=== PATIENT | female | born 1955 | race Caucasian/White ===

== ENCOUNTER 2019-11-03 17:49 | Inpatient (IN) | payer OTHER ==
[~2019-11-03] VITALS: Ht 167.6 cm; Wt 75.4 kg
[~2019-11-03 17:49] MED LIST: CRUTCH USE; OXYACE5T PO
[2019-11-03] MEDS ORDERED: ALPR.5 PO (18:49)
[2019-11-03] MEDS ORDERED: Abilify5 MG PO (18:49)
[2019-11-03] MEDS ORDERED: Prozac40 MG PO (18:49)
[2019-11-03] MEDS ORDERED: TRAM50 PO (19:31)
[2019-11-03 19:48] LABS: BASOPHILS PERCENT AUTO 1 % (0-2); EOSINOPHILS ABSOLUTE AUTO 0.02 K/mm3 (0.00-0.68); EOSINOPHILS PERCENT AUTO 0 % (0-6); Hematocrit 45.8 % (33.0-51.0); Hemoglobin 15.3 g/dL (11.5-16.0); IMMATURE GRAN ABSOLUTE AUTO 0.27 K/mm3 (0.00-0.10); IMMATURE GRAN PERCENT AUTO 1 % (0-1); LYMPHOCYTES ABSOLUTE AUTO 1.13 K/mm3 (0.84-5.20); LYMPHOCYTES PERCENT AUTO 5 % (21-46); MONOCYTES ABSOLUTE AUTO 0.83 K/mm3 (0.16-1.47); MONOCYTES PERCENT AUTO 4 % (4-13); Mean Corpuscular HGB 30.2 pg (26.0-34.0); Mean Corpuscular HGB Conc 33.4 g/dL (31.5-36.5); Mean Corpuscular Volume 91 fL (80-100); Mean Platelet Volume 10.5 fL (9.1-12.4); NEUTROPHILS ABSOLUTE AUTO 18.45 K/mm3 (1.96-9.15); NEUTROPHILS PERCENT AUTO 89 % (41-73); Platelet Count 262 K/mm3 (150-400); RDW Coefficient Variation 12.6 % (11.7-14.2); RDW Standard Deviation 41.5 fL (35.1-46.3); Red Blood Cell Count 5.06 M/mm3 (3.80-5.20)
[2019-11-03 19:58] LABS: Anion Gap 9 mmol/L (6-16); Blood Urea Nitrogen 17 mg/dL (8-24); Bun/Creatinine Ratio 18.8 (12.0-20.0); CO2, Blood 24 mmol/L (21-32); Calcium, Blood 9.1 mg/dL (8.5-10.1); Chloride, Blood 100 mmol/L (98-108); Creatinine, Blood 0.91 mg/dL (0.40-1.00); Glomerular Filtration Rate >60 (60-); Glucose, Blood 99 mg/dL (70-99); Potassium, Blood 3.4 mmol/L (3.5-5.5); Sodium, Blood 133 mmol/L (136-145)
--- NOTE | 2019-11-04 05:38 | NUR ---
SHIFT SUMMARY PT NEW ADMIT THIS SHIFT. AAOX4. NPO THIS AM. DISCOMFORT TO LEFT HIP CONTROLLED WITH 1MG IV DILAUDID Q2-3P. NO NAUSEA/EMESIS. ABRASION TO RIGHT HAND WRAPPED WITH GAUZE/COBAN. PPP, DENIES N/T MOVES TOES WELL BLE. NEW COCO PLACED THIS SHIFT. PT RESTED WELL THROUGH MOST OF NIGHT. ORIENTED TO CALL LIGHT + DEMONSTRATED USE. PT RESTING AT THIS TIME, NADN, WITH CALL LIGHT IN REACH.
--- NOTE | 2019-11-04 08:00 | NUR ---
DR ALCALA HERE TO SEE PT, FAMILY PRESENT.
--- NOTE | 2019-11-04 08:38 | NUR ---
DR ORELLANA HERE TO SEE PT. DISCUSSED PT'S MEDS WELL.
--- NOTE | 2019-11-04 12:33 | NUR ---
PATIENT WAS BROUGHT TO THE [facility] FROM ROOM #215 AND MADE READY FOR SURGERY. History, Chart, Medications and Allergies reviewed before start of procedure.Lungs clear T/O to Auscultation. Patient confirms NPO status and agrees with scheduled surgery. Pre-Op teaching done. Pt verbalizes understanding.
--- NOTE | 2019-11-04 15:58 | NUR ---
SHIFT SUMMARY PT BEEN NPO. PT BEEN ASSISTED WITH ADL'S PRN. PT BEEN MED PRN FOR PAIN. FAMILY BEEN PRESENT. PT DENIED REPOSITIONING. DR ALCALA AND REYNA BEEN TO SEE PT TODAY. PT OUT OF ROOM AT THIS TIME FOR PROCEDURE.
--- NOTE | 2019-11-04 16:25 | NUR ---
OTHER RN Jade GIVEN REPORT SHE IS TAKING OVER CARE AT THIS TIME.
--- NOTE | 2019-11-04 17:00 | NUR ---
PATIENT RETURNED TO ROOM FROM PACU AT THIS TIME. AWAKE. DENIES PAIN, NAUSEA, SOB, CP. VSS. LS CLEAR T/O. HRR. L HIP WITH AQUACEL DRESSING, D&I. CIRC CHECKS WNL. DENIES N/T TO LE'S. MOVES FEET. FAMILY AT BEDSIDE. CONT TO MONITOR.
--- NOTE | 2019-11-05 03:59 | NUR ---
SHIFT SUMMARY POD 1 S/P LEFT VIANEY; A/OX4 WITH VSS. AQUACEL TO LEFT HIP C/D/I WITH POLAR PACK IN PLACE. TOLERATING REGULAR DIET, DENIES N/V. PAIN AT TOLERABLE LEVEL WITH 2 TABS OF ROXICODONE. DAUGHTER AT BEDSIDE T/O SHIFT. CURRENTLY RESTING IN BED WITH CALL LIGHT IN REACH. PLAN TO WORK WITH THERAPY TODAY. WILL CONT TO MONITOR AND GIVE REPORT TO ONCOMING RN
[2019-11-05 04:37] LABS: BASOPHILS ABSOLUTE AUTO 0.02 K/mm3 (0.00-0.23); BASOPHILS PERCENT AUTO 0 % (0-2); EOSINOPHILS ABSOLUTE AUTO 0.02 K/mm3 (0.00-0.68); EOSINOPHILS PERCENT AUTO 0 % (0-6); Hematocrit 31.7 % (33.0-51.0); Hemoglobin 10.4 g/dL (11.5-16.0); IMMATURE GRAN ABSOLUTE AUTO 0.09 K/mm3 (0.00-0.10); IMMATURE GRAN PERCENT AUTO 1 % (0-1); LYMPHOCYTES ABSOLUTE AUTO 1.06 K/mm3 (0.84-5.20); LYMPHOCYTES PERCENT AUTO 6 % (21-46); MONOCYTES ABSOLUTE AUTO 0.97 K/mm3 (0.16-1.47); MONOCYTES PERCENT AUTO 6 % (4-13); Mean Corpuscular HGB 29.9 pg (26.0-34.0); Mean Corpuscular HGB Conc 32.8 g/dL (31.5-36.5); Mean Corpuscular Volume 91 fL (80-100); NEUTROPHILS ABSOLUTE AUTO 15.06 K/mm3 (1.96-9.15); NEUTROPHILS PERCENT AUTO 88 % (41-73); Platelet Count 148 K/mm3 (150-400); RDW Coefficient Variation 12.4 % (11.7-14.2); Red Blood Cell Count 3.48 M/mm3 (3.80-5.20); White Blood Cell Count 17.22 K/mm3 (4.00-11.30)
[2019-11-05 04:58] LABS: Anion Gap 5 mmol/L (6-16); Blood Urea Nitrogen 12 mg/dL (8-24); Bun/Creatinine Ratio 14.1 (12.0-20.0); CO2, Blood 27 mmol/L (21-32); Chloride, Blood 98 mmol/L (98-108); Creatinine, Blood 0.85 mg/dL (0.40-1.00); Glomerular Filtration Rate >60 (60-); Glucose, Blood 126 mg/dL (70-99); Sodium, Blood 130 mmol/L (136-145)
--- NOTE | 2019-11-05 08:34 | NUR ---
11/05/19 0834 Rowan Parish VERIFICATIONS: EDIT CHART.
--- NOTE | 2019-11-05 16:40 | NUR ---
assumed care of pt, recvd report from previous RN Phyllis. pt sleeping in bed, rousable, denies n/v, rates pain at 7/10, will medicate per mar.
[2019-11-06] MEDS ORDERED: Aspir 8181 MG PO (00:54)
[2019-11-06] MEDS ORDERED: Percocet 5-3251 EACH PO (00:55)
--- NOTE | 2019-11-06 04:28 | NUR ---
SHIFT SUMMARY PT IS A/O X4. USES STANDBY ASSIST WITH WALKER TO BATHROOM. PT IS VOIDING AND TOLERATING PO INTAKE. PT HAS BEEN DOING WELL WITH 50% WB PER ORDERS. SHE HAS REPORTED MILD DISCOMFORT THAT HAS BEEN MANAGED WITH SCHEDULED TYLENOL AND TORADOL. PT DECLINED FURTHER PAIN MEDS THIS SHIFT. DRESSING CDI. ASSISTED WITH ADLS PRN.
--- NOTE | 2019-11-06 16:53 | NUR ---
DISCHARGE PT PROVIDED WITH WRITTEN AND VERBAL DISCHARGE INSTRUCTIONS; PT AND HER DAUGHTER REPORTED UNDERSTANDING. SHE WAS PROVIDED WITH CLEAN DRESSINGS, AND FAMILY TOOK PRESCRIPTIONS TO BE FILLED. PT ESCORTED OUT IN W/C.
== END 2019-11-06 16:49 | disposition home or self-care (01) | DRG 470 ==
LOC: ER 17:49 → SURS 21:23
PROVIDERS: Emergency Medicine; Orthopaedic Surgery; ADMIT Surgery
PROC: 0SRB0JZ Replacement of Left Hip Joint with Synthetic Substitute, Open Approach (ICD-10-PCS; principal; 2019-11-04 13:15)
DX: S72.002A Fracture of unspecified part of neck of left femur, initial encounter for closed fracture (principal); V86.59XA Driver of other special all-terrain or other off-road motor vehicle injured in nontraffic accident, initial encounter; Y93.K9 Activity, other involving animal care; Y92.73 Farm field as the place of occurrence of the external cause; I10 Essential (primary) hypertension; F32.9 Major depressive disorder, single episode, unspecified; F41.9 Anxiety disorder, unspecified; S22.080D Wedge compression fracture of T11-T12 vertebra, subsequent encounter for fracture with routine healing
CPT/HCPCS: 36415; 70450; 71045; 71260; 72080; 72125; 72170; 74177; 80048; 85025; 88305; 88311; 96374-59; 96375; 97110; 97116; 97161; 97166; 97530; 97535; 99285-25; C1776; J0171; J0690; J0735; J1100; J1170; J1885; J2250; J2270; J2370; J2405; J2704; J2765; J2795; J3010; J7120; Q9967

== ENCOUNTER → 2020-09-19 | Outpatient (CLI) | payer OTHER ==
[~2020-09-19] MED LIST changes: +ALPR.5 PO; +Abilify5 MG PO; +Aspir 8181 MG PO; +Percocet 5-3251 EACH PO; +Prozac40 MG PO; +TRAM50 PO
[2020-09-19 15:50] LABS: Source, Urine Clean Catch
[2020-09-19 17:46] LABS: Appearance, Urine Clear (Clear); Bilirubin, Urine Neg (Neg); Blood, Urine Neg (Neg); Color, Urine Yellow (P-Yellow); Glucose Qualitative, Urine Neg (Neg); Ketones, Urine Neg (Neg); Leukocyte Esterase, Urine 2+ (Neg); Nitrite, Urine Neg (Neg); Protein, Urine Neg (Neg); Specific Gravity, Urine 1.005 (1.003-1.022); Urobilinogen, Urine NORM (Normal)
[2020-09-19 18:23] LABS: Bacteria Rare /hpf; Red Blood Cells, Urine 0-2 /hpf (0-2); Squamous Epithelial Cells Few /hpf (Few); Transitional Epithelial Cells Rare /hpf (0-Rare)
== END | disposition home or self-care (01) ==
LOC: LAB 14:50 → LAB SHORT 14:50
PROVIDERS: Nurse Practitioner Family
DX: N39.0 Urinary tract infection, site not specified (principal)
CPT/HCPCS: 81001; 87086; 87147

== ENCOUNTER → 2020-10-25 | Outpatient (CLI) | payer OTHER | LOC: LAB SHORT 07:53 → PLD 07:53 | DX: D23.71 Other benign neoplasm of skin of right lower limb, including hip (principal) | CPT/HCPCS: 88305 ==

== ENCOUNTER → 2021-05-22 | Outpatient (CLI) | payer OTHER ==
[2021-05-22 20:41] LABS: Creatinine Urine 41.3 mg/dL (27.00-270.00); Microalbumin, Urine Quant. 30.9 mg/L (0.000-20.000)
== END | disposition home or self-care (01) ==
LOC: LAB SHORT 08:47 → LAB 08:47
PROVIDERS: Internal Medicine Nephrology
DX: E55.9 Vitamin D deficiency, unspecified (principal); N25.81 Secondary hyperparathyroidism of renal origin; E78.00 Pure hypercholesterolemia, unspecified; N18.2 Chronic kidney disease, stage 2 (mild); D63.1 Anemia in chronic kidney disease; R76.9 Abnormal immunological finding in serum, unspecified; R94.5 Abnormal results of liver function studies; R94.6 Abnormal results of thyroid function studies; D51.8 Other vitamin B12 deficiency anemias; D52.8 Other folate deficiency anemias; D50.9 Iron deficiency anemia, unspecified
CPT/HCPCS: 81050; 82043; 82570; 84156

== ENCOUNTER → 2022-06-06 | Outpatient (CLI) | payer OTHER | END | disposition home or self-care (01) | LOC: LAB 18:07 → LAB SHORT 18:07 | DX: R30.0 Dysuria (principal) | CPT/HCPCS: 87077; 87086; 87186 ==

== ENCOUNTER → 2023-11-20 | Outpatient (CLI) | payer OTHER ==
[2023-11-20 14:13] LABS: Source, Urine Clean Catch
[2023-11-20 18:41] LABS: Appearance, Urine Clear (Clear); Bilirubin, Urine Neg (Neg); Blood, Urine 1+ (Neg); Color, Urine Yellow (P-Yellow); Glucose Qualitative, Urine Neg (Neg); Ketones, Urine Neg (Neg); Leukocyte Esterase, Urine 3+ (Neg); Nitrite, Urine Neg (Neg); Protein, Urine 1+ (Neg); Urobilinogen, Urine NORM (Normal)
[2023-11-20 18:57] LABS: Bacteria Many /hpf; Squamous Epithelial Cells Few /hpf (Few); Transitional Epithelial Cells Rare /hpf (0-Rare); White Blood Cells, Urine 50-100 /hpf (0-5)
== END ==
LOC: LAB SHORT 11:31 → LAB 13:15 → LAB SHORT 13:15
PROVIDERS: Nurse Practitioner Family
DX: R30.0 Dysuria (principal)
CPT/HCPCS: 81001; 87077; 87086; 87186

== ENCOUNTER 2024-03-31 11:51 | Inpatient (IN) | payer OTHER ==
[2024-03-31] VITALS (28 sets, daily range): BP systolic 106–170; BP diastolic 68–112
[~2024-03-31] VITALS: Ht 167.6 cm; Wt 78.7 kg
[2024-03-31] MEDS ORDERED: levETIRAcetam 1,000 MG in NS 100 ML IV ONE (12:40)
[2024-03-31] MEDS ORDERED: dilTIAZem HCL 125 MG in Dextrose 5% 100 ML IV SCH (12:40)
[2024-03-31 12:55] LABS: BASOPHILS ABSOLUTE AUTO 0.06 K/mm3 (0.00-0.23); BASOPHILS PERCENT AUTO 1 % (0-2); EOSINOPHILS ABSOLUTE AUTO 0.11 K/mm3 (0.00-0.68); EOSINOPHILS PERCENT AUTO 1 % (0-6); Hematocrit 47.9 % (33.0-51.0); Hemoglobin 16.1 g/dL (11.5-16.0); IMMATURE GRAN ABSOLUTE AUTO 0.06 K/mm3 (0.00-0.10); IMMATURE GRAN PERCENT AUTO 1 % (0-1); LYMPHOCYTES ABSOLUTE AUTO 1.63 K/mm3 (0.84-5.20); LYMPHOCYTES PERCENT AUTO 19 % (21-46); MONOCYTES ABSOLUTE AUTO 0.63 K/mm3 (0.16-1.47); MONOCYTES PERCENT AUTO 7 % (4-13); Mean Corpuscular HGB Conc 33.6 g/dL (31.5-36.5); Mean Corpuscular Volume 89 fL (80-100); Mean Platelet Volume 9.8 fL (9.1-12.4); NEUTROPHILS ABSOLUTE AUTO 6.22 K/mm3 (1.96-9.15); NEUTROPHILS PERCENT AUTO 71 % (41-73); Platelet Count 236 K/mm3 (150-400); RDW Coefficient Variation 13.2 % (11.7-14.2); RDW Standard Deviation 43.4 fL (35.1-46.3); Red Blood Cell Count 5.37 M/mm3 (3.80-5.20); White Blood Cell Count 8.71 K/mm3 (4.00-11.30)
[2024-03-31 13:08] LABS: International Normalized Ratio 0.94; Prothrombin Time Results 10.1 Sec (9.7-11.5)
[2024-03-31 13:12] LABS: Albumin, Blood 4.4 g/dL (3.4-5.0); Albumin/Globulin Ratio 1.3 (0.8-1.8); Bilirubin, Total 0.6 mg/dL (0.1-1.0); Bun/Creatinine Ratio 20.2 (12.0-20.0); Creatinine, Blood 0.94 mg/dL (0.40-1.00); Globulin, Blood 3.3 g/dL (2.2-4.0); Potassium, Blood 3.9 mmol/L (3.5-5.5); Total Protein, Blood 7.7 g/dL (6.4-8.2)
[2024-03-31] MEDS ORDERED: NiCARdipine HCL 50 MG in NS 250 ML IV SCH (13:20)
[2024-03-31] MEDS ORDERED: DiphenhydrAMINE HCl 50 MG/ML 1ML Vial IV ONE (14:15)
[2024-03-31] MEDS ORDERED: Prochlorperazine Edisylate 10 mg Vial IV ONE (14:15)
[2024-03-31] MEDS ORDERED: LISI20 PO (16:50)
[2024-03-31] MEDS ORDERED: CARV25 PO (16:51)
[2024-03-31] MEDS ORDERED: TraMADol HCl 50 MG Tab PO PRN (17:20)
[2024-03-31] MEDS ORDERED: Pramipexole DI-HCL 0.125 MG Tab PO ONE (17:30)
--- NOTE | 2024-03-31 17:43 | NUR ---
ADMIT/SUMMARY PT ARRIVED TO ICU 3 VIA ER BED AT 1635. PT IS AWAKE, ALERT, AND ORIENTED UPON ARRIVAL. PT ANSWERS QUESTIONS APPROPRIATELY. PT COMPLAINS OF RESTLESS LEGS AND IS CONTINUALLY FIDGETTING IN THE BED. PT STOOD UP TO TRANSFER TO ICU BED. PT REPORTS DIZZINESS WHEN STANDING. PT WITH PIV TO LAC WITH NICARDIPINE INFUSING AT 5 MG/HR. VITAL SIGNS STABLE. PT ON ROOM AIR. PT SPOUSE AND DAUGHTERS AT BEDSIDE. WILL CONTINUE TO MONITOR AND REPORT OFF TO ONCOMING RN.
[2024-03-31 18:00] LABS: Percent Saturation 19.5 % (15.0-50.0)
--- NOTE | 2024-03-31 18:13 | NUR ---
SPiritual Care | Pt. Referral Pt. is standing and transiitoning from the commode to her bed when she and the family welcome me visit. Pt. is unsettled by what she verbalizes as the "shaking in her legs." Listen with empathy and a calming presence. Pt. affirms that she and the family are people of inga but that she was experiencing a difficulty focusing on conversation. Pt. agree to have this assistant store manager sales reurn in the morning. Prayed for the Pt. Pt. and family verbalized gratitude for the spiritual care visit.
[2024-03-31] MEDS ORDERED: Lisinopril 20 MG Tab PO SCH (19:50)
[2024-03-31] MEDS ORDERED: Pramipexole DI-HCL 0.125 MG Tab PO SCH (21:00)
[2024-04-01] VITALS (46 sets, daily range): BP systolic 123–184; BP diastolic 76–123
[2024-04-01 03:55] LABS: BASOPHILS PERCENT AUTO 1 % (0-2); EOSINOPHILS ABSOLUTE AUTO 0.22 K/mm3 (0.00-0.68); EOSINOPHILS PERCENT AUTO 2 % (0-6); Hematocrit 47.9 % (33.0-51.0); Hemoglobin 15.8 g/dL (11.5-16.0); IMMATURE GRAN ABSOLUTE AUTO 0.11 K/mm3 (0.00-0.10); IMMATURE GRAN PERCENT AUTO 1 % (0-1); LYMPHOCYTES ABSOLUTE AUTO 1.92 K/mm3 (0.84-5.20); LYMPHOCYTES PERCENT AUTO 20 % (21-46); MONOCYTES ABSOLUTE AUTO 0.87 K/mm3 (0.16-1.47); MONOCYTES PERCENT AUTO 9 % (4-13); Mean Corpuscular Volume 91 fL (80-100); Mean Platelet Volume 9.9 fL (9.1-12.4); NEUTROPHILS ABSOLUTE AUTO 6.37 K/mm3 (1.96-9.15); NEUTROPHILS PERCENT AUTO 67 % (41-73); Platelet Count 239 K/mm3 (150-400); RDW Coefficient Variation 13.3 % (11.7-14.2); RDW Standard Deviation 44.8 fL (35.1-46.3); Red Blood Cell Count 5.27 M/mm3 (3.80-5.20); White Blood Cell Count 9.59 K/mm3 (4.00-11.30)
[2024-04-01] MEDS ORDERED: HydrALAZINE HCl 20 MG / ML 1ML Vial IV PRN (04:05)
[2024-04-01 04:15] LABS: Albumin, Blood 3.9 g/dL (3.4-5.0); Albumin/Globulin Ratio 1.2 (0.8-1.8); Bilirubin, Total 0.7 mg/dL (0.1-1.0); Bun/Creatinine Ratio 21.1 (12.0-20.0); Calcium, Blood 8.7 mg/dL (8.5-10.1); Creatinine, Blood 0.95 mg/dL (0.40-1.00); Globulin, Blood 3.2 g/dL (2.2-4.0); Potassium, Blood 4.3 mmol/L (3.5-5.5); Total Protein, Blood 7.1 g/dL (6.4-8.2)
[2024-04-01] MEDS ORDERED: Carvedilol 6.25 MG Tab PO SCH ×2 (05:14→17:00)
--- NOTE | 2024-04-01 05:24 | NUR ---
SHIFT SUMMARY PT REMAINED ALERT AND ORIENTED X 4 T/O ENTIRETY OF SHIFT. ABLE TO FOLLOW COMMANDS, MAKE PURPOSEFUL MOVEMENTS, AND MAKE NEEDS KNOWN. AFEBRILE. DENIED PAIN, BUT REPORTED RLS SYMPTOMS, L > R, THAT RESOLVED EARLY IN THE MORNING. CONTINOUS CARDIAC MONITORING IN PLACE SHOWING SR-ST WITH HR IN 80'S-100'S. SBP 130'S-180'S. GIVEN LISINOPRIL AND HYDRALAZINE PER HOSPITALIST D/T SUSTAINED HTN WITH NO BENEFIT - AM COREG DOSE GIVEN EARLY PER HOSPITALIST. NICARDIPINE REMAINS ON SB. ON ROOM AIR WITH O2 SATURATIONS > 92%. INDEPENDENTLY AMBULATES TO BSC. NO BM THIS SHIFT. PIV TO LAC. WILL CONTINUE TO MONITOR AND REPORT TO ONCOMING RN.
[2024-04-01] MEDS ORDERED: Carvedilol 6.25 MG Tab PO ONE (07:25)
[2024-04-01] MEDS ORDERED: Ketorolac Tromethamine 15mg Vial IV PRN (07:35)
[2024-04-01] MEDS ORDERED: Atorvastatin 10 MG Tab PO SCH (09:00)
--- NOTE | 2024-04-01 11:42 | NUR ---
Pt. is awake and welcomes my visit. Pt. is very pleasant. As I facilitated a life review the Pt. verbalized that she has just lost her mother who was a hospice Pt. with passed in the past several days, after on ly being home for 5 hrs. With theraputic listening pastoral care is given as the Pt. verbalizes the pressure of caring for her mother's details. Considered matters of inga and belief. During the visit, the Pt. had a friend visit. After the friend departed, I prayed with the Pt. Pt. verbalized gratitude for the spiritual care visit and welcomed this nuclear powerplant supervisor to return.
--- NOTE | 2024-04-01 12:17 | NUR ---
ASSUMED CARE FROM ROCAEL SPARKS. PATIENT TO MRI WITH TRANSPORT STAFF [facility]IA [facility] AT THIS TIME
--- NOTE | 2024-04-01 12:52 | NUR ---
PATIENT BACK TO ROOM FROM MRI
--- NOTE | 2024-04-01 15:29 | NUR ---
VISION CHANGES/ HTN: PT HAS CALLED NURSING STAFF TO NOTIFY THAT HER RIGHT EYE IS HAVING SOME VISION CHANGES AT THIS TIME & IS "BLURRY," BUT THAT SHE CAN STILL SEE OUT OF IT. SHE MENTIONS THAT SHE HAS EXPERIENCED SIMILAR SYMPTOMS PRIOR TO THIS ADMISSION WELL. BP CHECKED & NOTED TO BE INCREASED, HYDRALAZINE GIVEN PER EMAR. NEURO ASSESSMENT OTHERWISE WNL. DR LEMOS HAS BEEN NOTIFIED & STS THAT IF DBP DOES NOT IMPROVE TO < 110 THEN THE PT WILL NEED TO AGAIN BE ICU STATUS & RESTARTED ON NICARDIPINE DRIP. REPEAT VS IMPROVED W/ DBP < 110 & PROVIDER NOTIFIED. HE STS THAT IF VISION ISSUES WORSEN OR HAVE NOT IMPROVED WITHIN 30 MINS TO NOTIFY HIM AGAIN. NO OTHER CHANGES AT THIS TIME.
[2024-04-01] MEDS ORDERED: Ondansetron HCl 2 MG / ML 2ML Vial IV PRN (15:50)
[2024-04-01] MEDS ORDERED: Carvedilol 25 MG Tab PO SCH (17:00)
--- NOTE | 2024-04-01 18:08 | NUR ---
SHIFT SUMMARY PATIENT HAD EPISODE OF HEADACHE, BLURRY VISION, AND HYPERTENSION. SEE PREVIOUS NURSE NOTE. HYDRALAZINE GIVEN ONCE THIS SHIFT PER EMAR AND COREG INCREASED TO 25MG BID. PATIENT MEDICATED FOR NAUSEA X 1. MRI COMPLETED THIS SHIFT. LAC IV INFILTRATED AFTER ZOFRAN ADMINISTERED, IV PULLED AND NEW PIV PALCED. NO OTHER CHANGES THIS SHIFT.
[2024-04-01] MEDS ORDERED: TraMADol HCl 50 MG Tab PO ONE (21:50)
[2024-04-01] MEDS ORDERED: TraMADol HCl 50 MG Tab ONE (22:04)
--- NOTE | 2024-04-01 22:39 | NUR ---
ASSUMED CARE/TRANSFER TO PCU ASSUMED CARE AT 1900. PT A/O X 4. VSS. SBP 130'S. CALL TO HOSP D/T PT STATING HOME TRAMADOL DOSE OF 50MG IN AM AND 100MG AT NOC. ORDERS RECEIVED. REPORT GIVEN TO PORTFOLIO STRATEGIST. PT BELONGINGS, MEDS AND CHART SENT WITH PT. PT TOLD FAMILY HER NEW ROOM NUMBER.
[2024-04-02 00:42] VITALS: BP 147/98
[2024-04-02 04:07] VITALS: BP 143/89
[2024-04-02 04:18] LABS: BASOPHILS ABSOLUTE AUTO 0.07 K/mm3 (0.00-0.23); BASOPHILS PERCENT AUTO 1 % (0-2); EOSINOPHILS ABSOLUTE AUTO 0.26 K/mm3 (0.00-0.68); EOSINOPHILS PERCENT AUTO 3 % (0-6); Hematocrit 44.9 % (33.0-51.0); IMMATURE GRAN ABSOLUTE AUTO 0.11 K/mm3 (0.00-0.10); IMMATURE GRAN PERCENT AUTO 1 % (0-1); LYMPHOCYTES ABSOLUTE AUTO 2.34 K/mm3 (0.84-5.20); LYMPHOCYTES PERCENT AUTO 22 % (21-46); MONOCYTES PERCENT AUTO 10 % (4-13); Mean Corpuscular HGB 30.2 pg (26.0-34.0); Mean Corpuscular HGB Conc 33.4 g/dL (31.5-36.5); Mean Corpuscular Volume 90 fL (80-100); NEUTROPHILS ABSOLUTE AUTO 6.74 K/mm3 (1.96-9.15); NEUTROPHILS PERCENT AUTO 64 % (41-73); Platelet Count 229 K/mm3 (150-400); RDW Coefficient Variation 13.3 % (11.7-14.2); RDW Standard Deviation 43.9 fL (35.1-46.3); Red Blood Cell Count 4.97 M/mm3 (3.80-5.20); White Blood Cell Count 10.52 K/mm3 (4.00-11.30)
[2024-04-02 04:42] LABS: Albumin, Blood 3.4 g/dL (3.4-5.0); Albumin/Globulin Ratio 1.2 (0.8-1.8); Bilirubin, Total 0.6 mg/dL (0.1-1.0); Bun/Creatinine Ratio 16.6 (12.0-20.0); Calcium, Blood 8.9 mg/dL (8.5-10.1); Creatinine, Blood 0.9 mg/dL (0.40-1.00); Globulin, Blood 2.8 g/dL (2.2-4.0); Potassium, Blood 3.7 mmol/L (3.5-5.5); Total Protein, Blood 6.2 g/dL (6.4-8.2)
--- NOTE | 2024-04-02 06:18 | NUR ---
SHIFT SUMMARY PATIENT ARRIVED TO PCU 11 FROM ICU 03 VIA WHEEL CHAIR. PATIENT IS ALERT AND ORIENTED X4. HAD NO COMPLAINTS OF PAIN OR SHORTNESS OF BREATH. STAND BY ASSIST TO THE RESTROOM. PATIENT ON ROOM AIR WITH SPO2 >90%. BLOOD PRESSURE STABLE, REMAINED WITH SBP IN THE 140'S. NO ACUTE ISSUES NOTED OVERNIGHT. WILL CONTINUE TO MONITOR. CALL LIGHT WITHIN REACH.
[2024-04-02 07:09] VITALS: BP 143/100
--- NOTE | 2024-04-02 07:30 | NUR ---
INITIAL ASSESSMENT: Patient is awake sitting up in bed, she is oriented x4. She states she was at her doctors office and her blood pressure was high and she was experiencing dizziness, thus she came in to the ER. She states she is not having any of these symptoms at this time. HRR, SR in the 80s, her blood pressure is a little on the high side this am 148/100, will give AM meds and reassess. LS CTA, Biox is high 90s on RA. BT+. Patient is able to get OOB to the bathroom with a SBA. PPP, no edema present at this time. Patient denies other needs at this time. Call light in reach.
[2024-04-02 08:26] VITALS: BP 123/92
--- NOTE | 2024-04-02 08:32 | NUR ---
Update: Dr. Khoury has been to see the patient, plan on DC this afternoon if her blood pressure is better after her AM meds. Blood pressure came down to 123/98, MD given update plan to DC today. Patient is resting in bed, denies other needs at this time.
[2024-04-02] MEDS ORDERED: TraMADol HCl 50 MG Tab PO SCH ×2 (09:00→21:00)
[2024-04-02] MEDS ORDERED: ATORVASTATIN CA10 M1 PO (09:42)
[2024-04-02] MEDS ORDERED: PRAM.125 PO (09:42)
--- NOTE | 2024-04-02 10:02 | NUR ---
DISCHARGE: Patient verbalized understanding of discharge instructions. Scripts were faxed to [facility].
== END 2024-04-02 10:06 | disposition home or self-care (01) | DRG 65 ==
LOC: ER 11:51 → ICUE 15:42 → PCU 04-01 22:22
PROVIDERS: Emergency Medicine; ADMIT Internal Medicine
DX: I62.01 Nontraumatic acute subdural hemorrhage (principal); I16.1 Hypertensive emergency; X58.XXXA Exposure to other specified factors, initial encounter; F41.9 Anxiety disorder, unspecified; I25.10 Atherosclerotic heart disease of native coronary artery without angina pectoris; N18.2 Chronic kidney disease, stage 2 (mild); G89.4 Chronic pain syndrome; F32.A Depression, unspecified; E78.5 Hyperlipidemia, unspecified; M81.0 Age-related osteoporosis without current pathological fracture; G25.81 Restless legs syndrome; E55.9 Vitamin D deficiency, unspecified; I12.9 Hypertensive chronic kidney disease with stage 1 through stage 4 chronic kidney disease, or unspecified chronic kidney disease; Z90.710 Acquired absence of both cervix and uterus; Z96.642 Presence of left artificial hip joint; Z66 Do not resuscitate; Z88.8 Allergy status to other drugs, medicaments and biological substances; Z79.811 Long term (current) use of aromatase inhibitors; Z79.899 Other long term (current) drug therapy; R51.9 Headache, unspecified
CPT/HCPCS: 36415; 70551; 80053; 82728; 83540; 83550; 85025; 85610; 85730; 86850; 86900; 86901; 96365; 96366; 96367; 96375; 99285-25; A9270; J0360; J0780; J1200; J1953; J2405; J7050

== ENCOUNTER → 2024-04-23 | Outpatient (CLI) | payer OTHER ==
[~2024-04-23] MED LIST changes: +ATORVASTATIN CA10 M1 PO; +CARV25 PO; +LISI20 PO; +PRAM.125 PO
== END | disposition home or self-care (01) ==
LOC: LAB SHORT 10:01 → LAB 10:01
DX: N39.0 Urinary tract infection, site not specified (principal)
CPT/HCPCS: 87077; 87086; 87186

== ENCOUNTER 2024-09-15 12:56 | Emergency (ER) | payer OTHER ==
[~2024-09-15] VITALS: Ht 167.6 cm; Wt 79.8 kg
[2024-09-15 13:23] LABS: BASOPHILS ABSOLUTE AUTO 0.06 K/mm3 (0.00-0.23); BASOPHILS PERCENT AUTO 0 % (0-2); EOSINOPHILS ABSOLUTE AUTO 0.08 K/mm3 (0.00-0.68); EOSINOPHILS PERCENT AUTO 1 % (0-6); Hematocrit 44.7 % (33.0-51.0); Hemoglobin 15.3 g/dL (11.5-16.0); IMMATURE GRAN ABSOLUTE AUTO 0.14 K/mm3 (0.00-0.10); IMMATURE GRAN PERCENT AUTO 1 % (0-1); LYMPHOCYTES ABSOLUTE AUTO 1.21 K/mm3 (0.84-5.20); LYMPHOCYTES PERCENT AUTO 9 % (21-46); MONOCYTES ABSOLUTE AUTO 0.61 K/mm3 (0.16-1.47); MONOCYTES PERCENT AUTO 4 % (4-13); Mean Corpuscular HGB 29.7 pg (26.0-34.0); Mean Corpuscular HGB Conc 34.2 g/dL (31.5-36.5); Mean Corpuscular Volume 87 fL (80-100); Mean Platelet Volume 10.7 fL (9.1-12.4); NEUTROPHILS ABSOLUTE AUTO 12.14 K/mm3 (1.96-9.15); NEUTROPHILS PERCENT AUTO 85 % (41-73); Platelet Count 188 K/mm3 (150-400); RDW Coefficient Variation 12.5 % (11.7-14.2); RDW Standard Deviation 39.8 fL (35.1-46.3); Red Blood Cell Count 5.15 M/mm3 (3.80-5.20); White Blood Cell Count 14.24 K/mm3 (4.00-11.30)
[2024-09-15 13:46] LABS: Albumin, Blood 3.6 g/dL (3.4-5.0); Albumin/Globulin Ratio 1.2 (0.8-1.8); Bilirubin, Total 0.7 mg/dL (0.1-1.0); Bun/Creatinine Ratio 20.3 (12.0-20.0); Calcium, Blood 8.9 mg/dL (8.5-10.1); Creatinine, Blood 0.89 mg/dL (0.40-1.00); Total Protein, Blood 6.6 g/dL (6.4-8.2)
[2024-09-15] MEDS ORDERED: Meclizine HCl 25 MG Tab PO ONE (14:10)
[2024-09-15] MEDS ORDERED: MECL25 PO (15:38)
[2024-09-15] MEDS ORDERED: ONDA4ODT MM (15:38)
[2024-09-15 16:00] VITALS: BP 171/91
== END 2024-09-15 16:15 | disposition home or self-care (01) ==
LOC: ER 12:56
PROVIDERS: Emergency Medicine
DX: H83.09 Labyrinthitis, unspecified ear (principal); I12.9 Hypertensive chronic kidney disease with stage 1 through stage 4 chronic kidney disease, or unspecified chronic kidney disease; N18.2 Chronic kidney disease, stage 2 (mild); I25.10 Atherosclerotic heart disease of native coronary artery without angina pectoris; E78.5 Hyperlipidemia, unspecified; Z88.1 Allergy status to other antibiotic agents; Z79.899 Other long term (current) drug therapy
CPT/HCPCS: 80053; 85025; 93005; 93010; 99284-25; A9270

== ENCOUNTER → 2024-10-19 | Outpatient (CLI) | payer OTHER ==
[~2024-10-19] MED LIST changes: +MECL25 PO; +ONDA4ODT MM
[2024-10-19 09:21] LABS: Source, Urine Clean Catch
[2024-10-19 12:49] LABS: Appearance, Urine Cloudy (Clear); Bilirubin, Urine Neg (Neg); Blood, Urine 2+ (Neg); Color, Urine Yellow (P-Yellow); Glucose Qualitative, Urine Neg (Neg); Ketones, Urine Neg (Neg); Leukocyte Esterase, Urine 3+ (Neg); Nitrite, Urine Pos (Neg); Protein, Urine 2+ (Neg); Urobilinogen, Urine NORM (Normal); pH, Urine 6.5 (5.0-8.0)
[2024-10-19 13:04] LABS: Bacteria Many /hpf; Squamous Epithelial Cells Few /hpf (Few); White Blood Cells, Urine TNTC /hpf (0-5)
== END ==
LOC: LAB SHORT 09:03 → LAB 09:03
PROVIDERS: Nurse Practitioner Family
DX: R30.0 Dysuria (principal)
CPT/HCPCS: 81001; 87077; 87086; 87186